=== PATIENT | male | born 1975 | race Caucasian/White ===

== ENCOUNTER → 2017-08-28 19:55 | Emergency (ER) | payer BC, OTHER ==
[~2017-08-28 19:55] MED LIST: Ibuprofen TAB* 800 MG PO ONE; oxyCODONE/Acetamin 5/325 MG* TAB PO ONE
[2017-08-28 20:03] VITALS: BP 182/102
--- NOTE | 2017-08-28 20:17 | ED ---
Upper Extremity Pain - HPI Summary HPI Summary: Right hand dominant patient here with right thumb pain and swelling after falling onto his thumb during a volleyball game earlier tonight. He developed swelling immediately and has mild tingling over his thenar eminence where swelling is most impressive. He denies numbness or weakness. No previous injury here. He can oppose his index finger but has pain with any other thumb movements. No pain with wrist flexion/extension - mild pain w/ ulnar/radial deviation. - History of Current Complaint Chief Complaint: EDExtremityUpper Stated Complaint: RT THUMB INJURY Time Seen by Provider: 08/28/17 20:09 Hx Obtained From: Patient - Allergies/Home Medications Allergies/Adverse Reactions: Allergies Allergy/AdvReac Type Severity Reaction Status Date / Time No Known Allergies Allergy Verified 08/21/16 10:06 PMH/Surg Hx/FS Hx/Imm Hx Previously Healthy: Yes Endocrine/Hematology History: Denies: Hx Anticoagulant Therapy, Hx Blood Disorders Cardiovascular History: Denies: Hx Pacemaker/ICD Musculoskeletal History: Reports: Hx Back Problems - takes percocet PRN through PCP (not daily) Sensory History: Denies: Hx Hearing Aid Neurological History: Reports: Other Neuro Impairments/Disorders - PAIN CLINIC PT. Psychiatric History: Denies: Hx Panic Disorder - Surgical History Surgery Procedure, Year, and Place: TONSILS A CHILD. 2009 RCT RT SHOULDER Infectious Disease History: No Infectious Disease History: Denies: Traveled Outside the [place] in Last 30 Days - Social History Alcohol Use: Weekly Alcohol Amount: 3-5 drinks/week Substance Use Type: Reports: None Smoking Status (MU): Never Smoked Tobacco Review of Systems Positive: no symptoms reported Positive: Arthralgia, Myalgia, Decreased ROM, Edema Skin: Other - swelling, erythema Positive: Paresthesia. Negative: Weakness, Numbness Psychological: Normal All Other Systems Reviewed And Are Negative: Yes Physical Exam Triage Information Reviewed: Yes Vital Signs On Initial Exam: Initial Vitals Temp Pulse Resp BP Pulse Ox 98.7 F 76 16 182/102 99 08/28/17 20:01 08/28/17 20:01 08/28/17 20:01 08/28/17 20:01 08/28/17 20:01 Vital Signs Reviewed: Yes Appearance: Positive: Well-Appearing, Well-Nourished, Pain Distress - mild to moderate Skin: Positive: Warm, Skin Color Reflects Adequate Perfusion, Dry - skin is erythematous over Rt thumb and thenar eminence (note: Patient has had ice in this area prior to investigation) Eyes: Positive: EOMI ENT: Positive: Hearing grossly normal Respiratory/Lung Sounds: Positive: Breath Sounds Present Cardiovascular: Positive: Pulses are Symmetrical in both Upper and Lower Extremities Musculoskeletal: Positive: Limited @ - Can oppose right thumb index finger - pain with follow the range of motion, Pain @ - Right thenar eminence and along extensor pollicis tendon patient has tenderness to palpation - other than edema , no gross deformity Neurological: Positive: Normal, Sensory/Motor Intact, Alert, Oriented to Person Place, Time, CN Intact II-III Procedures - Splinting Location: RT UE Pre-Made Type: velcro Splint: thumb spica Pre-Proc Neuro Vasc Exam: normal Post-Proc Neuro Vasc Exam: normal Diagnostics - Vital Signs Vital Signs Temp Pulse Resp BP Pulse Ox 08/28/17 20:01 98.7 F 76 16 182/102 99 - Laboratory Lab Statement: Any lab studies that have been ordered have been reviewed, and results considered in the medical decision making process. Course/Dx - Course Course Of Treatment: XR w/o acute findings. Suspect sprain/tendon strain. RICE in splint and f/u w/ PCP - will see ortho PRN per PCP's referral. Has percocet at home - will take in addition to NSAID's as needed - Diagnoses Provider Diagnoses: Sprain of hand, thumb, right, Strain of thumb, right Discharge - Sign-Out/Discharge Documenting (check all that apply): Discharge - Discharge Plan Condition: Stable Disposition: HOME Patient Education Materials: Finger Sprain (ED) Referrals: Rafael BO,Fco Hernandez [Primary Care Provider] - Additional Instructions: Rest, ice, elevate and keep splint in place except for when showering - use caution to avoid use of thumb when not and splint. You may take ibuprofen 800 mg every 8 hours with food for pain and swelling - alternate with your home Percocet for pain as needed Follow-up with PCP in one week to reassess symptoms - if still present or worse , you may need referral to orthopedic tech. PCP will make this referral as needed. If he developed numbness tingling or weakness, removed the splint and elevate the thumb for 20 minutes. If symptoms persist return to the emergency department. - Billing Disposition and Condition Condition: STABLE Disposition: HOME
--- OUTSIDE RECORDS SUMMARY | 2017-08-28 20:34 | XMS REPORT ---
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 Social History Type Date Description Comments Smoking Patient has never smoked Allergies, Adverse Reactions, Alerts Date Description Reaction Status Severity Comments 12/11/2012 NKDA active Medications Medication Date Status Form Strength Qnty SIG Indications Ordering Provider Percocet Active Tablets 10-325mg 45tabs 1 tab q Denzel 013 4-6 hrs Keith Zhu Omeprazole /[address] 40mg 30caps 1 po qd Unknown 000 Tizanidine 0 Active Tablets 4mg take 1 Unknown HCL 000 tablet by mouth every 8 hours as needed Percocet 0000/0 Hx Tablets 10/325 42tabs 1 tab q Unknown 000 - 4-6 hrs 013 Flexeril /0 Hx Tablets 10mg 30tabs 1 po tid Unknown 000 - prn 018 Medications Administered in Office Medication Date Status Form Strength Qnty SIG Indications Ordering Provider Celestone 3 mg Administered Injection Mert and 3mg Luis Pickens M.D. Vital Signs Date Vital Result Comment 08/10/2017 Height 69 inches 5'9" Weight 218.00 lb Heart Rate 76 /min BP Systolic Recheck 126 mmHg BP Diastolic Recheck 84 mmHg Respiratory Rate 16 /min Body Temperature 98.7 F BMI (Body Mass Index) 32.2 kg/m2 05/05/2014 Height 69 inches 5'9" Weight 210.00 lb Heart Rate 100 /min Pain Level 5 BMI (Body Mass Index) 31.0 kg/m2 03/10/2014 Height 69 inches 5'9" Heart Rate 89 /min BP Systolic 147 mmHg BP Diastolic 97 mmHg 02/20/2013 Height 69 inches 5'9" Weight 210.00 lb Heart Rate 93 /min BP Systolic 134 mmHg BP Diastolic 95 mmHg BMI (Body Mass Index) 31.0 kg/m2 02/19/2013 Height 69 inches 5'9" Weight 210.00 lb Heart Rate 80 /min BP Systolic 126 mmHg BP Diastolic 84 mmHg Respiratory Rate 16 /min Body Temperature 98.5 F BMI (Body Mass Index) 31.0 kg/m2 02/12/2013 Height 69 inches 5'9" Weight 210.00 lb Heart Rate 72 /min BP Systolic 136 mmHg BP Diastolic 84 mmHg Respiratory Rate 16 /min Body Temperature 98.1 F BMI (Body Mass Index) 31.0 kg/m2 01/29/2013 Height 69 inches 5'9" Weight 210.00 lb Heart Rate 72 /min BP Systolic 124 mmHg BP Diastolic 84 mmHg Respiratory Rate 16 /min Body Temperature 98.0 F BMI (Body Mass Index) 31.0 kg/m2 01/01/2013 Height 69 inches 5'9" Weight 215.00 lb Heart Rate 80 /min BP Systolic 118 mmHg BP Diastolic 76 mmHg Respiratory Rate 16 /min Body Temperature 98.8 F BMI (Body Mass Index) 31.7 kg/m2 12/11/2012 Height 69 inches 5'9" Weight 250.00 lb Heart Rate 72 /min BP Systolic 118 mmHg BP Diastolic 74 mmHg Respiratory Rate 16 /min Body Temperature 98.6 F BMI (Body Mass Index) 36.9 kg/m2 Results Description No Information Procedures Date CPT Code Description Status 03/24/2013 60333 Arthroscopy,Shoulder Decompression Of Subacromial Space Completed W/Acromio 03/24/2013 49555 Arthroscopy Shoulder Debridement Extensive Completed 03/24/2013 78922 Tenodesis Biceps Long Tendon Completed 02/20/2013 Inject/Drain Joint/Bursa Major Completed 02/20/201367329 Inject Tendon Sheath Or Ligament Aponeurosis Eg Plantar Completed Fascia 02/12/2013 Inject/Drain Joint/Bursa Major Completed Encounters Type Date Location Provider CPT E/M Dx Office Visit 05/05/2014 2:45p [facility] M.D. 88179 715.31 [facility] Office Visit 03/10/2014 10:45a [facility] M.D. 33610 715.31 [facility] Office Visit 02/16/2014 1:45p [facility] M.D. 12322 840.9 [facility] Office Visit 01/26/2014 4:15p [facility] M.D. 70480 719.41 [facility] 719.41 840.9 840.9 Office Visit 08/04/2013 10:30a [facility] M.D. 76927 840.9 [facility] Office Visit 07/07/2013 9:00a [facility] M.D. 65388 840.9 [facility] Office Visit 03/04/2013 10:15a [facility] M.D. 49896 840.9 [facility] Office Visit 02/20/2013 9:00a [facility] M.D. 26531 840.9 [facility] Office Visit 02/19/2013 8:30a [facility] M.[facility]. 00791 840.9 [facility] Office Visit 02/12/2013 9:45a [facility] M.D. 64271 840.9 [facility] Office Visit 01/29/2013 8:15a [facility] M.D. 76392 840.9 [facility] Office Visit 01/01/2013 8:15a [facility] M.D. 23940 840.9 [facility] Office Visit 12/11/2012 10:00a [facility] M.D. 71247 840.9 [facility] 840.9 Plan of Care 08/10/2017 - Fco Escobar M.D.M51.36 Other intervertebral disc degeneration, lumbar regionNew Xrays:MRI Lumbar Spine W/OFollow up:After diagnostic study
--- NOTE | 2017-08-28 20:41 | RAD ---
INDICATION: Swelling and pain at the RIGHT thenar eminence post fall. COMPARISON: No relevant prior exams available on the [facility] for comparison. TECHNIQUE: AP, lateral, and oblique views RIGHT hand. REPORT AND IMPRESSION: Negative for fracture or malalignment. Soft tissue swelling most prominent at the thenar eminence. No conspicuous foreign body or subcutaneous emphysema.
== END | disposition home or self-care (01) ==
LOC: ED 19:55
DX: S63.601A Unspecified sprain of right thumb, initial encounter (principal); W19.XXXA Unspecified fall, initial encounter; Y93.68 Activity, volleyball (beach) (court); Y92.9 Unspecified place or not applicable
CPT/HCPCS: 99282; A9270-GY